=== PATIENT | male | born 1990 | race African-American/Black ===

== ENCOUNTER 2020-08-01 18:04 | Emergency (ER) | payer OTHER ==
[~2020-08-01] VITALS: Ht 185.4 cm; Wt 74.2 kg
[2020-08-01] MEDS ORDERED: PSEU30TA85 PO (19:28)
[2020-08-01] MEDS ORDERED: AUGM875T28 PO (19:28)
[2020-08-01] MEDS ORDERED: FLON1SPR NARES (19:28)
[2020-08-01] MEDS ORDERED: IBUP-1022 PO (19:28)
[2020-08-01] MEDS ORDERED: IBUPROFEN 600MG TAB PO ONE (19:30)
[2020-08-01] MEDS ORDERED: AUGMENTIN 875 MG TAB PO ONE (19:30)
[2020-08-01 19:40] VITALS: BP 118/73
== END 2020-08-01 20:09 | disposition home or self-care (01) ==
LOC: M ED 18:04
DX: H66.014 Acute suppurative otitis media with spontaneous rupture of ear drum, recurrent, right ear (principal)

== ENCOUNTER → 2020-11-14 | Outpatient (CLI) | payer OTHER ==
[~2020-11-14] MED LIST: AUGM875T28 PO; FLON1SPR NARES; IBUP-1022 PO; PSEU30TA85 PO
== END ==
LOC: M OUTALCOH 13:52
PROVIDERS: ATTEND Psychiatry & Neurology Psychiatry
DX: F10.20 Alcohol dependence, uncomplicated (principal)

== ENCOUNTER 2020-12-18 14:57 | Outpatient (RCR) | payer OTHER | END 2020-12-19 | LOC: M OUTALCOH 14:57 | PROVIDERS: ATTEND Psychiatry & Neurology Psychiatry | DX: F10.20 Alcohol dependence, uncomplicated (principal); F17.200 Nicotine dependence, unspecified, uncomplicated ==

== ENCOUNTER 2021-01-18 13:00 | Outpatient (RCR) | payer OTHER ==
[~2021-01-18 13:00] MED LIST changes: -PSEU30TA85 PO; +PSEU30TA86 PO
== END 2021-01-19 ==
LOC: M OUTALCOH 13:00
PROVIDERS: ATTEND Psychiatry & Neurology Psychiatry
DX: F10.20 Alcohol dependence, uncomplicated (principal); F17.200 Nicotine dependence, unspecified, uncomplicated

== ENCOUNTER 2021-02-11 14:00 | Outpatient (RCR) | payer OTHER | END 2021-02-19 | LOC: M OUTALCOH 14:00 | PROVIDERS: ATTEND Psychiatry & Neurology Psychiatry | DX: F10.20 Alcohol dependence, uncomplicated (principal); F17.200 Nicotine dependence, unspecified, uncomplicated ==

== ENCOUNTER 2021-03-18 14:00 | Outpatient (RCR) | payer OTHER | END 2021-03-21 | LOC: M OUTALCOH 14:00 | PROVIDERS: ATTEND Psychiatry & Neurology Psychiatry | DX: F10.20 Alcohol dependence, uncomplicated (principal); F17.200 Nicotine dependence, unspecified, uncomplicated ==

== ENCOUNTER 2021-04-15 13:29 | Outpatient (RCR) | payer OTHER | END 2021-04-21 | LOC: M OUTALCOH 13:29 | PROVIDERS: ATTEND Psychiatry & Neurology Psychiatry | DX: F10.20 Alcohol dependence, uncomplicated (principal); F17.200 Nicotine dependence, unspecified, uncomplicated ==

== ENCOUNTER → 2021-04-19 | Outpatient (REF) | payer OTHER ==
[2021-04-19 14:17] LABS: SEMEN APPEARANCE OPAQUE (OPAQUE); SEMEN VISCOSITY LIQUID (LIQUID); SEMEN pH 8.5 (7.0-8.0); SPERM CONCENTRATION 28.2 M/ml (>=15.0); WBC CONCENTRATION <=1 M/ml (<=1 M/ml)
== END ==
LOC: M LAB REF 14:15
PROVIDERS: ATTEND Obstetrics & Gynecology
DX: N46.8 Other male infertility (principal)

== ENCOUNTER 2021-05-20 16:00 | Outpatient (RCR) | payer OTHER | END 2021-05-21 | LOC: M OUTALCOH 16:00 | PROVIDERS: ATTEND Psychiatry & Neurology Psychiatry | DX: F10.20 Alcohol dependence, uncomplicated (principal); F17.200 Nicotine dependence, unspecified, uncomplicated ==

== ENCOUNTER 2021-06-18 13:58 | Outpatient (RCR) | payer OTHER | END 2021-06-21 | LOC: M OUTALCOH 13:58 | PROVIDERS: ATTEND Psychiatry & Neurology Psychiatry | DX: F10.20 Alcohol dependence, uncomplicated (principal); F17.200 Nicotine dependence, unspecified, uncomplicated ==